=== PATIENT | male | born 1975 | race Hispanic/Latino ===

== ENCOUNTER 2016-10-06 18:01 | Inpatient (IN) | payer OTHER ==
[~2016-10-06] VITALS: Ht 177.8 cm; Wt 81.7 kg
[~2016-10-06 18:01] MED LIST: No home medications; OLAN5TAB PO; ZLP5T PO
[2016-10-06 18:14] VITALS: BP 155/84; PULSE 132; RESP 24; O2SAT 97
[2016-10-06] MEDS ORDERED: Ketamine 100 mg/mL 5 mL Inj IM ONE (18:20)
[2016-10-06] MEDS ORDERED: Haloperidol 5 mg/mL Inj IM ONE (18:20)
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
[2016-10-06 18:36] VITALS: PULSE 121; RESP 32; O2SAT 95
[2016-10-06 18:52] LABS: BASOPHILS % (AUTO) 0.1 % (0-3); EOSINOPHILS % (AUTO) 0.1 % (0-5); MONOCYTES % (AUTO) 5.7 % (4-12); Mean Corpuscular Hemoglobin 30.7 pg (27.0-35.0); Mean Corpuscular Volume 90.2 fL (81-100); NEUTROPHILS % (AUTO) 82.8 % (40-74); Platelet Count 262 bil/L (150-400)
[2016-10-06 19:17] LABS: INR 0.97 ratio
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
[2016-10-06 20:23] LABS: APPEARANCE,URINE CLEAR (CLEAR,HAZY); COLOR,URINE YELLOW (YELLOW); OCCULT BLOOD,URINE TRACE (NEGATIVE); UROBILINOGEN,URINE NORMAL (NORMAL)
[2016-10-06 22:00] VITALS: BP 107/78; PULSE 97; RESP 19; O2SAT 97
[2016-10-06 23:18] VITALS: BP 107/71; PULSE 99; RESP 18; O2SAT 100
[2016-10-07 02:54] VITALS: BP 106/71; PULSE 85; RESP 16; O2SAT 98
[2016-10-07 06:34] VITALS: BP 98/76; PULSE 85; RESP 16; O2SAT 98
[2016-10-07] MEDS ORDERED: Alum-Mag Hydrox-Simeth 30 mL Suspension PO PRN (07:25)
[2016-10-07] MEDS ORDERED: Benzocaine-Menthol Lozenge 2/Pkg PO PRN (07:25)
[2016-10-07] MEDS ORDERED: Magnesium Hydroxide 10 mL Oral Concentration PO PRN (07:25)
[2016-10-07 08:40] VITALS: BP 125/89; PULSE 129; RESP 18
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
[2016-10-07] MEDS ORDERED: OLANZapine Zydis ODT 5 mg Tablet PO PRN (14:25)
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
--- NOTE | 2016-10-07 16:19 | NUR ---
[id number] Pt arrived on unit at 0745. Pt appeared to be anxious and nervous about being here, but stated that he has been here before and it was helpful and he looks forward to being "mentally well" again. He had a difficult time answering questions when asked, wanting to be very precise with answers. Pt spent time in the common areas with peers and was friendly but quiet. Pt colored and attended groups. He attended meals and ate 100%. Pt slept much of the afternoon. He was observed every 15 minutes of shift as directed.
--- NOTE | 2016-10-07 22:18 | NUR ---
Nursing Note Angella Pt isolating to room upon arrival to unit. Pt got up later in shift, played ping-pong and ate dinner in milieu. Pt cooperative with staff and denied anxiety, depression and SI at this time. Pt was not very forth coming with information to his current situation and not willing to discuss feelings stating, "I would have to tell you the whole story and i don't want to go into it but Im feeling better and I didn't really want to '. Pt affect flat and abd drsg clean, dry and intact. Pt denied pain to area. Q15 min safety checks per protocol, PRN ambien given to promote sleep. WCTM sleep, behavior, safety
--- NOTE | 2016-10-08 06:13 | NUR ---
Nursing Noc 11-7 s/o- has appeared to sleep after 2244 during q 15 minute assessments. a- no apparent distress. p- monitor behavior/emotional state, quality, times and amount of sleep, use and effect of medication.
[2016-10-08 10:23] VITALS: BP 129/82; PULSE 97; RESP 17
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
--- NOTE | 2016-10-08 18:32 | NUR ---
Pt attended group and ate dinner in the common area with peers, no social connections made. Pt reported feeling moderate anxiety over coming to terms with the fact that he may have a biochemical imbalance and will benefit from medication to control AH. Provided supportive listening, education and reassurance. Declined antianxiety medication. Addendum: 10/08/16 at 1835 by HARPER PARRA RN Amended: Links added.
--- NOTE | 2016-10-08 19:15 | NUR ---
Obs Dayshift [id number] Pt spent most of his day in his room. Quiet, sad, depressed affect. Pt did join afternoon art grp with a little push from staff, brightened some. Ate meals in the DR. Parents visited, appeared to be a good visit, smiling and appropriate. Engages very little after being approached. Reserved and guarded. Ok ADL's, Good meals
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
--- NOTE | 2016-10-08 19:20 | NUR ---
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 He denies S/I and H/I. He denies auditory and visual hallucinations. Depression is 2/10 anxiety is 3/10. A: Patient is cooperative, restricted affect, euthymic, paranoid, limited insight, limited judgment. P: Follow care plan, coordinate with out-patient providers.
--- NOTE | 2016-10-09 06:06 | NUR ---
Sleep Pt slept through the night with no noted distress or awakening per protocol checks. Total sleep over 9 hours.
[2016-10-09] MEDS: LORazepam 2 mg Tablet PO PRN (10:48)
--- NOTE | 2016-10-09 11:26 | NUR ---
Day shift 7a-7p Pt with significantly increased paranoia this morning. He implied that peers in dining room where staring at him with the intent to intimidate him. " If I was in senior care I would have to do something about it". Also stated that he believes that staff are trying " extract information from him". " They came in during my visit with my parents acting all nice. But I know what they wanted". Pt would not identify the peers who he believes are targeting him but agreed not to take matters into his own hands and agreed to some to staff if feeling threatened. Pt given Ativan 2mg prn at 0930 with good relief.
[2016-10-09 15:28] VITALS: BP 111/69; PULSE 100
--- NOTE | 2016-10-09 17:36 | NUR ---
[facility] Day Shift Pt maintained behavioral control throughout the shift. Pt affect appears flat, anxious, preoccupied in the AM, considerably less so in the afternoon/evening. Pt spends most of the AM resting in his room. Pt expresses some paranoid delusions about staff and peers in the AM, citing distrustful feelings about their interactions with him (pt considered it odd when peers would greet him). Pt appears less suspicious and more social with staff and peers in the afternoon/evening. Pt spends most of the afternoon watching TV, exercising in the dining room, and engaging in unit activities throughout the shift. Pt attended community meeting in the AM. Pt participated in afternoon group activities. Pt attended all meals and ate approx 100% of all meals.
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
--- NOTE | 2016-10-09 19:31 | NUR ---
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 He denies S/I and H/I. He denies auditory and visual hallucinations. Depression is 2/10 anxiety is 2/10. A: Patient is cooperative, restricted affect, euthymic, paranoid, limited insight, limited judgment. P: Follow care plan, coordinate with out-patient providers.
--- NOTE | 2016-10-10 00:08 | NUR ---
Nursing Note [id number] Pt up in milieu upon arrival to unit. Pt affect bright and denied anxiety, depression or SI. No delusional thoughts or behavior noted on shift. Pt complained of 3/10 abd pain, Tylenol given and effective. Pt compliant with meds and participated with alvarez group activities. PRN Ambien 5mg given to promote sleep, with noted sleep time 2245. Pt currently asleep, with Q15 min safety checks done per protocol. WCTM sleep, safety, behavior
[2016-10-10 08:05] VITALS: BP 124/87; PULSE 103; RESP 16
--- NOTE | 2016-10-10 17:17 | NUR ---
Nursing note Srini Ellis Nursing Note S: I don't want to hurt anyone, or myself O: Pt attended groups interacted with peers. A: Pt affect flat. Pt cooperative, quiet, guarded. Changed abdominal dressing to abdomen. Wound is well approximated with no drainage. [place] are intact. P: Monitor for safety and response to treatment. Follow plan of care. PRNs No PRNs utilized today
--- NOTE | 2016-10-10 17:25 | NUR ---
Observations [id number] Pt was asleep upon start of shift. He attended all meals, eating an average of 75%. Pt played ping pong with peers in the common area. He spent much of his day in his room, sleeping. Pt appears to have a difficult time articulating his thoughts and expressing himself. He presents as socially awkward when interacting with others and anxious at times. He is friendly with staff and others. Pt was monitored every 15 minutes of shift as directed.
[2016-10-10] MEDS: LORazepam 2 mg Tablet PO PRN (20:20)
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
--- NOTE | 2016-10-10 20:20 | NUR ---
Nurses PRN Patient received Ativan 2mg and Ambien 5mg for underlying agitation,anxiety and sleep,date night caregiver to assess response.
--- NOTE | 2016-10-11 04:44 | NUR ---
Observations from [id number] Pt has been pleasant and friendly when approached by staff or when requesting something but has spent the majority of the evening by himself in is room. He mentioned that there was too much going on, and he just wanted to lay down. Pt appeared asleep at 2044 and has remained asleep throughout the night. Pt has been monitored every 15 minutes as directed.
--- NOTE | 2016-10-11 05:12 | NUR ---
nursing, nights, 11-7 s/o- has appeared to sleep after 2044 during q 15 minute assessments. a- no apparent distress. p- monitor behavior/emotional state, quality, times and amount of sleep, use and effect of medication. juanita
[2016-10-11 09:05] VITALS: BP 125/87; PULSE 113; RESP 16
--- NOTE | 2016-10-11 13:50 | NUR ---
Nursing Note Day [id number] Nursing Notes [id number] S: I feel fine today, I do not want to hurt anyone. O: Patient spent most of his day in room, with encouragement to come out for meals. A: Pt affect flat. Pt cooperative, quiet, guarded. Changed abdominal dressing to self-inflicted abdomen wound across lower abdomen. Wound is well approximated with no drainage, no erythema and no swelling. [place] are intact. P: Monitor for safety and response to treatment. Follow plan of care.
--- NOTE | 2016-10-11 17:34 | NUR ---
[facility] Day Shift Pt maintained behavioral control throughout the shift. Pt affect appears flat, but brighter than noted on previous shifts. Pt spends most of the AM resting in his room, more active on the unit in the afternoon. Pt has not expressed any paranoid delusions throughout this shift. Pt spends most of the afternoon watching TV, interacting with peers, and engaging in unit activities throughout the shift. Pt attended community meeting in the AM. Pt participated in afternoon group activities. Pt attended all meals and ate approx 100% of all meals.
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
--- NOTE | 2016-10-12 02:58 | NUR ---
Nursing Noc Pt spent evening with family in [place] conversing and appearing relaxed and appropriate. Pt requested medication for sleep and noted to sleep since 2129 by Q15 minute safety checks. Pt denies Si, or A/V hallucinations. Continuing to monitor mood, behavior, emotional state, and medications. BHCP
--- NOTE | 2016-10-12 09:50 | NUR ---
0700 -1900. nurs. S: "Now I have to accept that I have mental pxs, before I didn't want to believe that, I have to learn to relax more in my head, to stop me feeling nervous around people, if I do something people think is strange.... 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 O: Pt took shower, and requesting new dressing on abdominal wound, that had fallen of in night, area is stapled, well approximated, CDI. no signs of infection. Pt reporting goal was to be around people and interact, pt did attend community mtg and expressed intention to participate in activities in RT room. Pt reporting that his family is only support "If it wasn't for them I would be I think.. Pt living at home with family. Pt appearing willing to communicate concerns and expressing interest in future plans. Safety planning discussed with pt and pt enc. to take small steps and work with available support system.
--- NOTE | 2016-10-12 14:51 | NUR ---
Powerhouse Attendant/Counselor: S: "I'm just thinking of my priorities. Taking care of my bandages and being more social." O: Patient slept 8.5 hours last night as per staff. He denies S/I and H/I. He denies auditory and visual hallucinations. Depression is 0/10 anxiety is "a little bit, anxious about what is in store for me and what is in my future." A: Patient is cooperative, restricted affect, euthymic, paranoid, isolative, limited insight, limited judgment. P: Follow care plan, coordinate with out-patient providers.
[2016-10-12 16:37] VITALS: BP 110/74; PULSE 87; RESP 16
--- NOTE | 2016-10-12 17:23 | NUR ---
Observations 0700 to 1900 Pt has maintained behavioral control throughout the shift. Pt has been flat, isolative, depressed. Pt attended morning group and stated desires to be more social throughout day and know when to ask for help. Pt was out on unit post group briefly in morning but then isolated in room for rest of day apart from meals despite multiple attempts by staff to involve pt in community activities. "I want to be alone." Pt ate 100% of breakfast and lunch and was observed every 15 minutes as ordered.
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
--- NOTE | 2016-10-13 01:14 | NUR ---
Observations 1900 to 0700 pt was visiting with family members when my shift started. Pt said that the visit was okay. Pt did attend wrap up group last night. Pt had a snack and went to his room soon after. Pt first appeared asleep at 21:15 and was observed every 15 minutes through the night as directed.
--- NOTE | 2016-10-13 14:06 | NUR ---
[id number]. nurs. S: "I know I need to retrain my brain..when I am wondering what someones stare means, I need to remember that it can their own issue. I need to stay on my meds, my family say "you need to keep taking your medication why did you stop" O: Pt reporting that he had low level of depression 2/10, no SI, and no intrusive AHs. Pt stating that he was not having adverse s/es from meds as currently prescribed. Pt requesting and given Tums 500mg for heart burn, and motrin 600mg for some abdominal pain,2-3/10 on L.side of wound injury site in early afternoon, and reported effective. Pt reporting that he is aware that he was having "voices telling him to harm self prior to self injury event and and aware of this as both serious action and part of altered thinking px, not at all a result of SI. Pt exhibiting some improved insight with some apprehension re future undertaking some future self care planning. Repaired wound area CDI without signs of infection. Pt preferring to leave area without dressing at this point. Pt tends to isolate, and nervous around people, though tries to work on goal of trying to be more socially interactive. P:CNCP
--- NOTE | 2016-10-13 17:37 | NUR ---
[facility] Day Shift Pt maintained behavioral control throughout the shift. Pt affect appears flat. Pt spends most of the AM resting in his room, and appears less active on the unit than noted on previous shifts. Pt has not expressed any paranoid delusions throughout this shift. Pt spends most of the afternoon watching TV, interacting with peers, and engaging in unit activities throughout the shift. Pt attended community meeting in the AM. Pt did not participate in afternoon group activities. Pt attended all meals and ate approx 100% of all meals.
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
--- NOTE | 2016-10-14 03:07 | NUR ---
Nursing Noc Pt spent the evening quietly resting in his room. Minimal interaction with his peers. He did not participate in evening group. Polite and responsive when approached by staff. Took scheduled medication without difficulty. He received Ambien 5mg po prn for sleep with good effect. Noted to be asleep since 2300. Addendum: 10/14/16 at 0622 by LIANNA ARREDONDO RN Total sleep over 7 hours.
[2016-10-14 10:11] VITALS: BP 116/64; PULSE 100; RESP 16
--- NOTE | 2016-10-14 11:37 | NUR ---
Nursing Note [id number] Behavior S/O: Pt ate 100% of breakfast. Attended groups this morning. VS stable. Abdominal wound is well approximated with no s/sx of infection at wound site. Red areas around staple. No drainage. Pt states he is feeling better. Affect is more animated, but he still has times of tearfulness. Conversation tracking is hesitant. He often looks to the side while he is talking. Pt out in dining room this morning. Another pt told him to stop apologizing. Pt then isolated to his room. A: Pt still has sx of paranoia & internal stimuli. P: Provide supportive environment. Monitor medications & effects.
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
--- NOTE | 2016-10-15 04:01 | NUR ---
nursing, nights, 11-7 s/o- has appeared to sleep after 2044 during q 15 minute assessments. a- no apparent distress. prudencio to be removed Friday, possible discharge Friday. p- monitor behavior/emotional state, quality, times and amount of sleep, use and effect of medication
[2016-10-15 09:00] VITALS: BP 120/82; PULSE 111; RESP 17
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
--- NOTE | 2016-10-15 15:11 | NUR ---
Nursing Note [id number] Behavior S/O: Pt has a good appetite. Out of room for meals & groups. Pt participated fully in groups talking with staff & peers. Pt calm & cooperative. He has a full affects. Conversation tracking clear & organized with normal rate & rhythm & few hesitations when giving an answer. Alert & oriented x 3. A: Pt has been slowly improving. P: Provide supportive environment. Monitor medications & effects.
--- NOTE | 2016-10-15 19:06 | NUR ---
Obs Dayshift Pt participated in groups, engaged well, positive. During free times on the unit pt went back to his room. During groups pt. spent the entire time during four groups in the group room doing art, painting, trivia cards, etc. Laughing, engaging, appropriate, calm, and positive. Pt is polite, forward thinking. Stated his mood at 6/10 and goals were to keep thinking positive, work on himself and his NE, and work toward a better future. Good ADL's, Good meals
--- NOTE | 2016-10-15 22:03 | NUR ---
Nursing Note [id number] Pt up socializing and participating in activities. Pt appears tp have a brighter affect and appears to be looking forward to future DC. Pt compliant with meds, PRN ambien given to promote sleep. Q15 min safety checks done per protocol. Pt currently resting in room. WCTM sleep, safety and behavior
--- NOTE | 2016-10-16 01:43 | NUR ---
Observations 1900 to 0700 Pt spent most of night in his room. Pt came out briefly but quickly went back to his room. Pt had a snack and went to his room soon after. Pt first appeared asleep at 20:30 and was observed every 15 minutes through the night as directed.
--- NOTE | 2016-10-16 06:25 | NUR ---
Sleep Adequate sleep through the night with no noted distress per protocol checks. Total sleep over 9 hours.
--- NOTE | 2016-10-16 09:29 | PCM.DIMED ---
Discharge Instructions Date of Service Oct 16, 2016 Dates of Hospitalization Oct 07, 2016 at 05:56 Discharge Diagnosis Discharge Diagnosis Schizophrenia Paranoid Type Diet No restrictions Activity No restrictions Dudley Virk DO Oct 16, 2016 09:29
[2016-10-16] MEDS ORDERED: OLAN5TAB PO (09:30)
[2016-10-16 10:10] VITALS: BP 111/81; PULSE 116; RESP 19
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
--- NOTE | 2016-10-16 17:35 | NUR ---
Weld Technician/Counselor: S/O: Patient slept 9+ hours last night as per staff. He denies S/I and H/I. He denies auditory and visual hallucinations. Depression is 0/10 anxiety is "a little bit, anxious about discharging." Out-patient appointment: [facility], 10/17/16 at 9:30am. A: Patient is cooperative, hopeful, future oriented, limited insight, limited judgment. P: Follow care plan, coordinate with out-patient providers.
== END 2016-10-16 13:55 | disposition home or self-care (01) | DRG 740 ==
LOC: SED 18:01 → MHC 10-07 05:56
PROVIDERS: ADMIT Psychiatry & Neurology Psychiatry; ATTEND Psychiatry & Neurology Psychiatry
PROC: 0JQ83ZZ Repair Abdomen Subcutaneous Tissue and Fascia, Percutaneous Approach (ICD-10-PCS; principal; 2016-10-07)
DX: F20.0 Paranoid schizophrenia (principal); F17.210 Nicotine dependence, cigarettes, uncomplicated; S31.119A Laceration without foreign body of abdominal wall, unspecified quadrant without penetration into peritoneal cavity, initial encounter; X78.9XXA Intentional self-harm by unspecified sharp object, initial encounter

== ENCOUNTER 2016-10-16 13:59 | Emergency (ER) | payer OTHER ==
[~2016-10-16 13:59] MED LIST changes: -ZLP5T PO
== END 2016-10-16 14:24 | disposition home or self-care (01) ==
LOC: SED 13:59
DX: Z48.02 Encounter for removal of sutures (principal)